=== PATIENT | male | born 1945 | race Caucasian/White ===

== ENCOUNTER 2018-01-20 14:50 | Outpatient (CLI) | payer MEDICARE, OTHER ==
[2018-01-20 19:26] LABS: CALCIUM 8.7 mg/dL (8.5-10.3)
== END 2018-01-20 14:51 ==
LOC: LAB.WCP 14:50
PROVIDERS: ATTEND Family Medicine
DX: Z12.11 Encounter for screening for malignant neoplasm of colon (principal); R31.29 Other microscopic hematuria
CPT/HCPCS: 36415; 80048; G0103; 84153

== ENCOUNTER 2018-02-04 11:18 | Outpatient (CLI) | payer MEDICARE, OTHER ==
[2018-02-04] MEDS ORDERED: IOPAMIDOL-300 100 ML VIAL ONE (13:02)
[2018-02-04] MEDS: IOPAMIDOL-300 100 ML VIAL IVP ONE (13:54)
--- NOTE | 2018-02-05 08:18 | CT Report ---
Procedure Date: 02/04/2018 Accession Number: [id number] / [id number] Procedure: CT - Abdomen/Pelvis W/WO CPT Code: FULL RESULT: EXAM: Abdomen/Pelvis W/WO DATE: 02/04/2018 1:51 PM CLINICAL HISTORY: MICROSCOPIC HEMATURIA, HX OF KIDNEY STONES COMPARISON: None. TECHNIQUE: Routine helical imaging was performed through the kidneys, ureters and bladder in the precontrast and postcontrast phases, using split bolus technique. IV Contrast: 100 mL Isovue 300 Reconstructions: Coronal and sagittal. In accordance with CT protocol optimization, one or more of the following dose reduction techniques were utilized for this exam: automated exposure control, adjustment of mA and/or KV based on patient size, or use of iterative reconstructive technique. FINDINGS: Lung Bases: Normal. Right Kidney/Ureter: Parapelvic cysts. 3 mm parenchymal calcification. No nephrolithiasis. No solid renal lesion or collecting system lesion. Left Kidney/Ureter: Parapelvic cysts. Nonobstructing calculi, measuring up to 6 mm. No solid renal lesion or collecting system lesion. Other Solid Organs: The liver, spleen, pancreas, gallbladder, and adrenal glands are unremarkable. The bile ducts are unremarkable. Peritoneal Cavity/Bowel: Normal. No free fluid, free air or adenopathy. No masses. Bowel loops are unremarkable. Pelvic Organs: No bladder stones, obstruction or masses. The visualized pelvic organs are unremarkable. Vasculature: Normal. Bones: Degenerative changes. Other: None. IMPRESSION: Nonobstructing left renal calculi. No suspicious renal mass. RADIA
== END 2018-02-04 11:19 | disposition home or self-care (01) ==
LOC: DI 11:18
PROVIDERS: ATTEND Family Medicine
DX: R01.1 Cardiac murmur, unspecified (principal); N20.0 Calculus of kidney
CPT/HCPCS: 74178; 93306; Q9967

== ENCOUNTER 2018-07-07 08:37 | Outpatient (CLI) | payer MEDICARE, OTHER ==
--- NOTE | 2018-07-07 13:49 | CARDIAC PROCEDURE NOTE ---
DATE OF SERVICE: 07/07/2018 Physician: Maria M Abernathy MD, [facility] INDICATIONS: Abnormal exercise tolerance test EKG. CARDIAC RISK FACTORS: Family history of heart disease, elevated cholesterol, male gender, advanced age. After signing informed consent, the patient performed exercise on a Kofi protocol stress test. He also had nuclear myocardial perfusion imaging. The patient exercised for 8 minutes and 45 seconds. He achieved a peak heart rate of 125 (85% predicted maximum heart rate for age), 10.16 METS. The patient had no chest pain and minimal shortness of breath. O2 saturation was 94% at peak on room air. Resting heart rate 52, peak heart rate 125 (85% PMHR). Resting blood pressure 124/88. Peak blood pressure 162/70. BASELINE EKG: Normal sinus rhythm, left atrial enlargement, late R-wave progression. PEAK EK mm ST depressions with T-wave flattening in leads II, III and aVF and, [address] depressions in lead V5 and V6. These changes resolved after 3 minutes of recovery. SUMMARY: 1. Good exercise tolerance. 2. EKG changes are consistent with ischemia at an adequate level of heart rate achieved. 3. Nuclear images reported separately. cc: Avila Nuñez MD TD: 07/07/2018 13:38 MTDD
--- NOTE | 2018-07-23 10:06 | Nuclear Medicine Report ---
Reason: ABN EXERCISE TOLERANCE TEST Procedure Date: 07/07/2018 Accession Number: [id number] / [id number] Procedure: NM - Myocardial Perfusion STR/RST CPT Code: FULL RESULT: EXAM: SINGLE-ISOTOPE EXERCISE STRESS TEST. SINGLE-ISOTOPE AND ONE-DAY REST/STRESS MYOCARDIAL PERFUSION SCANS WITH TOMOGRAPHIC IMAGING, QUANTITATIVE ANALYSIS, WALL MOTION ANALYSIS AND CALCULATION OF EJECTION FRACTION. EXAM DATE: 07/07/2018 02:57 PM. Exam made available for interpretation 07/23/2018. CLINICAL HISTORY: ABN EXERCISE TOLERANCE TEST. COMPARISON: None available. TECHNIQUE: A rest myocardial perfusion scan was done with tomography after the intravenous administration of 10.1 mCi Tc-99m sestamibi. After an appropriate delay, a treadmill exercise stress was performed according to department protocol. The patient exercised for 8 minutes and 53 seconds. The maximum heart rate was 124 bpm, which was 84% of the maximum predicted heart rate of 147 bpm. At approximately peak heart rate, 41.3 mCi of Tc-99m sestamibi was injected for stress myocardial perfusion scan. Motion correction was applied when appropriate. Gated tomographic images were obtained for wall motion analysis and computation of left ventricular ejection fraction. FINDINGS: There is decreased activity in the septum on the rest and stress images, probably representing septal thinning. There is decreased activity in the inferior wall which is more pronounced on the rest images compared to the stress images, most likely representing diaphragm attenuation artifact. No significant convincing reversible perfusion defects are evident. Computer analysis: Summed stress score 6 Summed rest score 4 Summed difference score 2 Wall motion analysis demonstrates no focal wall motion abnormality The left ventricular end-diastolic volume is 68 cc. The left ventricular end-systolic volume is 20 cc. The left ventricular ejection fraction is calculated to be 71%. IMPRESSION: 1. No convincing significant fixed or reversible perfusion defects on visual analysis. 2. Normal left ventricular ejection fraction of 71%. 3. Normal segmental and global wall motion. 4. Normal left ventricular cavity size, no change with stress. 5. Based on computer analysis, mildly abnormal study with mild ischemia. RADIA
== END 2018-07-07 08:38 | disposition home or self-care (01) ==
LOC: DI 08:37
PROVIDERS: ATTEND Family Medicine
DX: I25.9 Chronic ischemic heart disease, unspecified (principal)
CPT/HCPCS: 78452; 93017; A9500

== ENCOUNTER 2018-07-24 02:18 | Emergency (ER) | payer MEDICARE, OTHER ==
[2018-07-24 02:50] LABS: BASOPHILS # (AUTO) 0.1 10^3/uL (0.0-0.1); BASOPHILS % (AUTO) 1.2 %; EOSINOPHILS # (AUTO) 0.4 10^3/uL (0.0-0.7); EOSINOPHILS % (AUTO) 4.8 %; HGB - HEMOGLOBIN 14.9 g/dL (14.0-18.0); LYMPHOCYTES # (AUTO) 2.1 10^3/uL (1.5-3.5); LYMPHOCYTES % (AUTO) 25.1 %; MEAN CORPUSCULAR HEMOGLOBIN 29.2 pg (27.0-31.0); MEAN CORPUSCULAR HGB CONC 34.2 g/dL (32.0-36.0); MEAN CORPUSCULAR VOLUME 85.5 fL (80.0-94.0); MEAN PLATELET VOLUME 7.1 fL (7.4-11.4); MONOCYTES # (AUTO) 0.9 10^3/uL (0.0-1.0); MONOCYTES % (AUTO) 10.3 %; NEUTROPHILS % (AUTO) 58.6 %; PLT - PLATELET COUNT 221 10^3/uL (130-450); RED CELL DISTRIBUTION WIDTH 13.1 % (12.0-15.0); WHITE BLOOD COUNT 8.5 x10^3/uL (4.8-10.8)
--- NOTE | 2018-07-24 02:50 | ED Physician Documentation ---
PD HPI CHEST PAIN - Stated complaint Stated Complaint: CHEST PX - Chief complaint Chief Complaint: Cardiac - History obtained from History obtained from: Patient, Family - History of Present Illness Timing - onset: How many hours ago (9) Timing - onset during: Rest Timing - duration: Hours (9) Timing - details: Constant Pain level max: 5 Pain level now: 2 Quality: Sharp Location: Left chest Radiation: Other (non-radiating) Improved by: Nothing Worsened by: Palpation Associated symptoms: No: Shortness of air, Diaphoresis, Nausea, Vomiting, Feeling faint / dizzy, General Weakness, Palpitations, Cough - Additional information Additional information: Cardiac stress test on 07/07/18 with abnormal EKG findings, but normal NM perfusion findings. Does not see a project control officer. Took an aspirin prior to arrival Review of Systems Ten Systems: 10 systems reviewed and negative Constitutional: denies: Fever, Chills Ears: denies: Ear pain Nose: denies: Rhinorrhea / runny nose, Congestion Throat: denies: Sore throat Cardiac: denies: Palpitations Respiratory: denies: Cough GI: denies: Abdominal Pain, Nausea, Vomiting, Diarrhea Skin: denies: Rash Musculoskeletal: denies: Neck pain, Back pain Neurologic: denies: Headache PD PAST MEDICAL HISTORY - Past Medical History Cardiovascular: None Respiratory: None Endocrine/Autoimmune: None GI: None : Kidney stones HEENT: None Psych: None Musculoskeletal: None Derm: None - Past Surgical History HEENT: Tonsil/Adenoidectomy - Present Medications Home Medications: Ambulatory Orders Medication Instructions Recorded Confirmed No Known Home Medications 01/30/15 01/30/15 - Allergies Allergies/Adverse Reactions: Allergies Allergy/AdvReac Type Severity Reaction Status Date / Time No Known Drug Allergies Allergy Verified 01/30/15 15:36 PD ED PE NORMAL - Vitals Vital signs reviewed: Yes - General General: Alert and oriented X 3, No acute distress, Well developed/nourished - HEENT HEENT: PERRL, Moist mucous membranes - Neck Neck: Supple, no meningeal sign - Cardiac Cardiac: RRR, Strong equal pulses - Respiratory Respiratory: No respiratory distress, Clear bilaterally - Abdomen Abdomen: Soft, Non tender, Non distended - Derm Derm: Warm and dry - Extremities Extremities: No edema, No calf tenderness / cord - Neuro Neuro: Alert and oriented X 3 - Psych Psych: Normal mood, Normal affect - Free text exam Free text exam: Tender palpation of the left anterior chest wall. Reproduces his pain Results - Vitals Vitals: Vital Signs - 24 hr 07/24/18 07/24/18 02:20 03:31 Temperature 36.3 C L Heart Rate 57 L 62 Respiratory 15 18 Rate Blood Pressure 127/82 H 106/74 O2 Saturation 97 97 Oxygen O2 Source Room air - EKG (time done) 0224 Rate: Rate (enter#) (58) Rhythm: NSR [place]: Normal Intervals: Normal VA QRS: Normal Ischemia: Normal ST segments - Labs Labs: Laboratory Tests 07/24/18 07/24/18 07/24/18 02:43 02:43 02:43 WBC 8.5 RBC 5.10 Hgb 14.9 Hct 43.6 MCV 85.5 MCH 29.2 MCHC 34.2 RDW 13.1 Plt Count 221 MPV 7.1 L Neut # (Auto) 5.0 Lymph # (Auto) 2.1 [place] # (Auto) 0.9 Eos # (Auto) 0.4 Baso # (Auto) 0.1 Absolute Nucleated RBC 0.00 Nucleated RBC % 0.0 Sodium 136 Potassium 4.1 Chloride 103 Carbon Dioxide 26 Anion Gap 7.0 BUN 22 H Creatinine 1.1 Estimated GFR (MDRD) 66 L Glucose 98 Calcium 9.1 Total Bilirubin 0.5 AST 23 ALT 19 Alkaline Phosphatase 58 Troponin I < 0.04 Total Protein 7.2 Albumin 4.1 Globulin 3.1 Albumin/Globulin Ratio 1.3 Lipase 54 H - Rads (name of study) cxr Radiology: Prelim report reviewed, EMP read contemporaneously, See rad report (no acute disease) PD MEDICAL DECISION MAKING - ED course Complexity details: reviewed results, re-evaluated patient, considered differential (No ST elevation SC, no aortic dissection, no PE, no tension pneumothorax, no aortic aneurysm), d/w patient, d/w family ED course: 73-year-old male who presents to the emergency department with atypical chest pain. Negative troponin and EKG after greater than 9 hours of symptoms. Doubt cardiac in etiology. Reproducible by pressing on the chest wall. Discussed with the patient a second troponin, he declines this and would like to go home at this time. We will have him follow-up closely with his doctor. Patient counseled regarding signs and symptoms for which I believe and urgent re- evaluation would be necessary. Patient with good understanding of and agreement to plan and is comfortable going home at this time This document was made in part using voice recognition software. While efforts are made to proofread this document, sound alike and grammatical errors may occur. Departure - Departure Disposition: 01 Home, Self Care Clinical Impression: Chest pain Qualifiers: Chest pain type: unspecified Qualified Code(s): R07.9 - Chest pain, unspecified Condition: Good Instructions: ED Chest Pain Atypical Unkn Cause Follow-Up: Avila Nuñez MD [Provider Admit Priv/Credential] - Within 1 week Comments: The cause of your symptoms is unclear today, but do not appear to be related to your heart. Return if you worsen. Follow-up with your doctor for further care.
--- NOTE | 2018-07-24 03:00 | XRAY Report ---
Reason: Chest Pain Procedure Date: 07/24/2018 Accession Number: [id number] / [id number] Procedure: XR - Chest 1 View X-Ray CPT Code: 47667 FULL RESULT: EXAM: CHEST RADIOGRAPHY EXAM DATE: 07/24/2018 02:46 AM. CLINICAL HISTORY: Chest Pain. COMPARISON: None. TECHNIQUE: 1 view. FINDINGS: Lungs/Pleura: Small lung volumes. Mild bibasilar atelectasis. No pleural effusion seen. No pneumothorax. Mediastinum: Within exam limitations, the cardiomediastinal contour is normal. Other: Osteopenia. IMPRESSION: 1. Small lung volumes and mild bibasilar atelectasis. RADIA
[2018-07-24 03:03] LABS: ALBUMIN 4.1 g/dL (3.2-5.5); ALBUMIN/GLOBULIN RATIO 1.3 (1.0-2.2); BILIRUBIN,TOTAL 0.5 mg/dL (0.2-1.0); CALCIUM 9.1 mg/dL (8.5-10.3); CREATININE 1.1 mg/dL (0.6-1.2); TOTAL PROTEIN 7.2 g/dL (6.7-8.2)
[2018-07-24 03:32] VITALS: BP 106/74
== END 2018-07-24 03:51 | disposition home or self-care (01) ==
LOC: ED 02:18
DX: R07.89 Other chest pain (principal)
CPT/HCPCS: 36415; 71045; 80053; 83690; 84484; 85025; 93005; 99283; 99284

== ENCOUNTER 2018-11-27 13:20 | Outpatient (CLI) | payer MEDICARE, OTHER ==
--- NOTE | 2018-11-27 15:08 | XRAY Report ---
Reason: DYSPHAGIA Procedure Date: 11/27/2018 Accession Number: [id number] / [id number] Procedure: FL - Esophogram CPT Code: FULL RESULT: EXAM: BARIUM ESOPHAGRAM EXAM DATE: 11/27/2018 02:14 PM. CLINICAL HISTORY: DYSPHAGIA. COMPARISONS: None. TECHNIQUE: Routine double contrast esophagram. Fluoroscopy Time: 78 seconds. Number of Images: 30. FINDINGS: Swallowing Mechanism: Under fluoroscopy with the patient upright in the lateral position, deglutition is normal. No evidence of aspiration. Esophageal Motility: Slightly decreased primary esophageal motility. Mucosa: Normal. No ulcerations or masses. Gastroesophageal Junction: Small sliding-type hiatus hernia. Other: Findings were discussed with the patient. IMPRESSION: 1. Normal deglutition. 2. Slight decrease in primary esophageal motility. 3. Small sliding type hiatus hernia. 4. Otherwise negative examination. No evidence of obstruction or neoplasm. RADIA
== END 2018-11-27 13:21 | disposition home or self-care (01) ==
LOC: DI 13:20
PROVIDERS: ATTEND Family Medicine
DX: R13.10 Dysphagia, unspecified (principal); K44.9 Diaphragmatic hernia without obstruction or gangrene
CPT/HCPCS: 74220

== ENCOUNTER 2019-03-14 05:11 | Outpatient (CLI) | payer MEDICARE, OTHER | END 2019-03-14 05:12 | disposition critical access hospital (66) | LOC: EMS 05:11 | PROVIDERS: ATTEND Surgery | DX: M54.5 Low back pain (principal); R25.2 Cramp and spasm | CPT/HCPCS: A0425; A0429 ==

== ENCOUNTER 2019-03-14 05:33 | Emergency (ER) | payer MEDICARE, OTHER ==
[2019-03-14] MEDS ORDERED: diazePAM 5 MG TABLET PO STA (06:29)
[2019-03-14] MEDS ORDERED: LIDOCAINE 1% 2 ML VIAL SUBQ STA (06:30)
--- NOTE | 2019-03-14 06:33 | ED Physician Documentation ---
History of Present Illness - Stated complaint Stated Complaint: BACK SPASM - Chief complaint Chief Complaint: Back Pain - Additonal information Additional information: This is a 74-year-old male who denies past medical history presents with right- sided lateral back discomfort. Patient flew from [place] yesterday, he states that he has also been sleeping on an uncomfortable bed for the last week. He began having some discomfort and stiffness in his right lateral back yesterday, and this morning at 2 AM when he woke up he felt like the muscles on the right side his back were spasming. He states that if he stands up the pain gets worse and if he shifts his weight off his right leg the pain gets better. He states that with certain movements such as twisting the pain is 10 out of 10. There is no pain in the midline of his back, it is located laterally in the lateral paraspinous region. He denies fever, chills, history of malignancy, bowel or bladder incontinence, hematuria, or difficulty using the bathroom. He denies weakness or numbness Review of Systems Constitutional: denies: Fever Cardiac: denies: Chest pain / pressure GI: denies: Abdominal Pain : denies: Unable to Void Musculoskeletal: reports: Back pain Neurologic: denies: Focal weakness PD PAST MEDICAL HISTORY - Past Medical History Past Medical History: Yes Cardiovascular: None Respiratory: None Endocrine/Autoimmune: None GI: None : Kidney stones HEENT: None Psych: None Musculoskeletal: None Derm: None - Past Surgical History Past Surgical History: Yes General: Colonoscopy HEENT: Tonsil/Adenoidectomy - Present Medications Home Medications: Ambulatory Orders Medication Instructions Recorded Confirmed Acetaminophen 650 mg PO Q6HR #30 tablet 03/14/19 Cyclobenzaprine [Flexeril] 10 mg PO TID PRN #20 tablet 03/14/19 Ibuprofen [Motrin] 600 mg PO Q6H PRN #30 tab 03/14/19 - Allergies Allergies/Adverse Reactions: Allergies Allergy/AdvReac Type Severity Reaction Status Date / Time No Known Drug Allergies Allergy Verified 03/14/19 05:44 - Social History Does the pt smoke?: No Smoking Status: Never smoker Does the pt drink ETOH?: Yes Does the pt have substance abuse?: No - Immunizations Immunizations are current?: Yes - POLST Patient has POLST: No PD ED PE NORMAL - Vitals Vital signs reviewed: Yes - General General: Alert and oriented X 3 - HEENT HEENT: PERRL - Neck Neck: Supple, no meningeal sign - Cardiac Cardiac: RRR - Respiratory Respiratory: Clear bilaterally - Abdomen Abdomen: Soft, Non tender, Non distended - Back Back: Other (Back is atraumatic, there is no ecchymosis. There is no midline tenderness of the CT or L-spine. There is some palpable spasm of the right mid to lower paraspinous muscle, and reproducible tenderness to palpation in this region.Patient is able to ambulate.) - Derm Derm: Warm and dry - Extremities Extremities: No deformity - Neuro Neuro: Alert and oriented X 3, No motor deficit, No sensory deficit, Other (5 out of 5 strength with ankle flexion and extension. Able to stand and ambulate indepently with some discomfort. Sensation to light touch intact over entire lower extremities.) - Psych Psych: Normal mood, Normal affect Results - Vitals Vitals: Vital Signs - 24 hr 03/14/19 05:33 Temperature 35.9 C L Heart Rate 94 Respiratory 24 Rate Blood Pressure 122/96 H O2 Saturation 94 Oxygen O2 Source Room air Procedures - General procedure General procedure: Trigger point injection: Procedure was performed after discussion of the risks and benefits of the procedure and verbal consent was obtained from the patient. The area of maximal tenderness was identified in the right paraspinous muscles, and was cleaned with an alcohol prep pad. Using a 27-gauge needle 0.5 cc of 1% lidocaine were injected at a depth of 1 cm into the 3 areas of maximal tenderness in patient's back. Care was made to aspirate prior to injection. Patient tolerated the procedure well without immediate complication PD MEDICAL DECISION MAKING - ED course Complexity details: considered differential (Back spasm, fracture, strain, sprain, malignancy, kidney stone, pyelonephritis.) ED course: On initial examination patient is uncomfortable but nontoxic-appearing. He has pain that localizes to the right lateral inferior paraspinous muscles. He has no midline spinal tenderness or pain. He is neurologically intact. He denies urinary symptoms, and description of his pain specifically that is worse with palpation and with specific movements that is reproducible makes kidney stone highly unlikely. He was given 5 mg of Valium p.o., and I performed a trigger point injection. Afterwards patient states that his pain is greatly improved. And that he is comfortable going home to rest in his bed. Given he has no midline tenderness, is neurologically intact, and has a palpable muscle spasm in his back, I do not feel that imaging would be revealing at this time, as he appears to have paraspinous muscle spasm. I prescribed patient Tylenol, ibuprofen, and cyclobenzaprine, with instructions on the side effecs of these medications. I discussed return precautions including any pain in the middle of his back, pain that is increasing or worsening with treatment, any neurologic signs, or other concerning symptoms. Patient agreed this plan and was discharged home in the care of his family. Departure - Departure Disposition: Home, Self Care Clinical Impression: Spasm of back muscles Condition: Good Instructions: Low Back Pain Self Care Follow-Up: Your,PCP [Other] (For follow up on back pain, within one week unless symptoms resolve) Prescriptions: Acetaminophen 650 mg PO Q6HR #30 tablet Cyclobenzaprine [Flexeril] 10 mg PO TID PRN #20 tablet PRN Reason: Spasms Ibuprofen [Motrin] 600 mg PO Q6H PRN #30 tab PRN Reason: Pain Comments: You were seen today for back muscle spasm. If you develop worsening symptoms, any weakness or numbness, or abdominal pain or vomiting, return to the emergency department. Take the medications as prescribed, and be cautious when using the cyclobenzaprine as it may cause some sedation.
[2019-03-14] MEDS ORDERED: ACETAMINOPHEN 325 MG TABLET PO STA (08:46)
[2019-03-14] MEDS ORDERED: oxyCODONE 5 MG TABLET PO STA (08:46)
--- NOTE | 2019-03-14 10:14 | XRAY Report ---
Reason: Lower T spine back pain Procedure Date: 03/14/2019 Accession Number: [id number] / [id number] Procedure: XR - Lumbar Spine 2 View CPT Code: FULL RESULT: EXAM: LUMBOSACRAL SPINE RADIOGRAPHY EXAM DATE: 03/14/2019 09:36 AM. CLINICAL HISTORY: Lower T-spine back pain. COMPARISONS: None. TECHNIQUE: 2 views. FINDINGS: Alignment: There is mid lumbar spine dextroscoliosis, 20 degrees, with left shift of L1 one L2, 9 mm. No spondylolisthesis. Bones: Five [id number] lumbar vertebral bodies are present. No fractures or bone lesions. Disks/facets: There is multilevel moderate to severe degenerative disk disease in the lower thoracic spine through the lumbar spine with mid lower lumbar spine facet hypertrophy. Sacroiliac Joints: Unremarkable. Soft Tissues: The visualized bowel gas pattern is normal. IMPRESSION: 1. Mid lumbar spine dextroscoliosis, 20 degrees, with left shift of L1 on L2. 2. Multilevel moderate to severe degenerative disk disease in the lower thoracic spine through the lumbar spine with mid lower lumbar spine facet hypertrophy. RADIA
--- NOTE | 2019-03-14 10:17 | XRAY Report ---
Reason: Lower back pain Procedure Date: 03/14/2019 Accession Number: [id number] / [id number] Procedure: XR - Thoracic Spine 2 View CPT Code: FULL RESULT: EXAM: THORACIC SPINE RADIOGRAPHY EXAM DATE: 03/14/2019 09:36 AM. CLINICAL HISTORY: Lower back pain. COMPARISON: CHEST 1 VIEW 07/24/2018 2:36 AM. TECHNIQUE: 2 views. FINDINGS: Alignment: No spondylolisthesis or scoliosis. Bones: No fractures or bone lesions. Disks: Multilevel mild to severe degenerative disk disease in the mid thoracic spine through the upper lumbar spine visualized. Soft Tissues: The visualized lungs demonstrate coarse linear opacity in the lung base, likely small atelectasis or scarring. The cardiomediastinal silhouette is within normal limits. IMPRESSION: 1. Multilevel mild to severe degenerative disk disease in the mid thoracic spine through the upper lumbar spine. 2. Negative for compression fracture or spondylolisthesis in thoracic spine. RADIA
[2019-03-14 10:56] VITALS: BP 108/78
== END 2019-03-14 10:56 | disposition home or self-care (01) ==
LOC: EDUNIT# → EDBD → ED 05:33
DX: M62.830 Muscle spasm of back (principal); M54.5 Low back pain
CPT/HCPCS: 20552; 72070; 72100; 99284; A9270

== ENCOUNTER 2019-04-22 10:21 | Day surgery (SDC) | payer MEDICARE, OTHER ==
[2019-04-22] MEDS ORDERED: fentaNYL 250 MCG/5 ML VIAL IVP ONE (10:22)
[2019-04-22] MEDS ORDERED: MIDAZOLAM 2 MG/2 ML VIAL IVP ONE (10:22)
[2019-04-22] MEDS ORDERED: LACTATED RINGERS 1,000 ML IV ONE (10:51)
--- NOTE | 2019-04-22 12:00 | SURGERY HX AND PHYSICAL(T) ---
Surgical History & Physical - PMH/PSH/Social Hx Does the pt have a hx of MRSA?: No Eyes, Ears, Nose, Throat: None Cardiovascular: None Respiratory: None Skin: None Endocrine/Autoimmune: None Gastrointestinal: None Urinary: None Musculoskeletal: None Psychiatric: None General: Colonoscopy Urologic: Ureterolithotomy (stones) Eyes Ears Nose Throat (EENT): Tonsil/Adenoidectomy Smoking Status: Never smoker Does the pt drink ETOH?: Yes Frequency: Occasional Does the pt have substance abuse?: No - Home Meds and Allergies Allergies/Adverse Reactions: Allergies Allergy/AdvReac Type Severity Reaction Status Date / Time No Known Drug Allergies Allergy Verified 03/14/19 05:44 - Vital Signs Heart Rate: 73 Blood Pressure: 122/82 Temperature: 36.6 C Respiratory Rate: 18 O2 Saturation: 97 Weight (kg): 77.4 kg Height: 1.7 m - Patient Review Patient Review: Problems were reviewed with the patient during this visit. Medications were reviewed with the patient during this visit. Allergies were reviewed this patient during this visit. Pertinent Tests Reviewed: All pertitent test for this patient were reviewed. - Assessment & Plan Assessment and Plan: Shahrzad Nuñez harshad is a very pleasant 74-year-old male to our office back on January 19, 2019 for the exact same symptoms. Patient had some occasional sensation of difficulty swallowing and the sensation of food getting stuck in h is throat. This was especially true of bread. In November of this year Dr. Nuñez ordered an esophagram which was done showing slightly decreased primary esophageal motility and a small sliding hiatal hernia but with was otherwise normal. A colonoscopy that was done in November [address] Aponte showed scattered diverticulosis along with some moderate internal hemorrhoids. At that time 150 mcg of fentanyl and 5 mg of Versed were used for conscious sedation. It is of note that Lj has a positive history of colon polyps and a brother that was diagnosed with colon cancer before the age of 60. In the interim none of this is changed but the patient has developed a slight cough. Allergies: No Known Allergies Medications: SUPREP BOWEL PREP KIT 17.5-3.13-1.6 GM/180ML ORAL SOLUTION (NA SULFATE-K SULFATE-MG SULF) Take one (6oz) bottle by mouth the PM before colonoscopy & one (6oz) bottle by mouth the AM of colonoscopy as directed by surgical clinic; Route: ORAL TAMSULOSIN HCL 0.4 MG ORAL CAPSULE (TAMSULOSIN HCL) Take one capsule by mouth daily; Route: ORAL Past Medical History: Hyperlipidemia Kidney Stone Past Surgical History: Lithotripsy Tonsillectomy Colonoscopy- 2014 Family History Summary: Family History of Other Medical Problems for Mother, . N - Entered On: 01/21/2019 Family History of UT male <55 for Father - Entered On: 01/21/2019 Family History of UT male <55 for Brother - Entered On: 01/21/2019 Family History of Colon Cancer for Brother - Entered On: 01/21/2019 Legacy Family History Notes: Dad: age 79 Mom: age 87 4 brothers, 1 sister; patient is in the middle. Family History Reviewed: 01/19/2019 Family History of a father for Father - Entered On: 12/07/2014 Social History Summary: Patient has never smoked. Patient has never used smokeless tobacco. Passive Smoke: N Alcohol Use: Y Drug Use: N HIV/High Risk: N Regular Exercise: N Review of Systems CONSTITUTIONAL: No weight loss, fever, chills, weakness, or fatigue. HEENT: Eyes: No visual loss, blurred vision, double vision or yellow sclerae. Ears, Nose, Throat: No hearing loss, sneezing, congestion, runny nose, or sore throat. SKIN: No rash or itching. RESPIRATORY: No shortness of breath, cough or sputum. GASTROINTESTINAL: No anorexia, nausea, vomiting or diarrhea. No abdominal pain or blood. GENITOURINARY: No dysuria. NEUROLOGICAL: No headache, dizziness, syncope, paralysis, ataxia, numbness or tingling in the extremities. No change in bowel or bladder control. MUSCULOSKELETAL: No muscle, back pain, joint pain or stiffness. HEMATOLOGIC: No anemia, bleeding or bruising. LYMPHATICS: No enlarged nodes. No history of splenectomy. PSYCHIATRIC: No history of depression or anxiety. ENDOCRINOLOGIC: No reports of sweating, cold or heat intolerance. No polyuria or polydipsia. ALLERGIES: No history of asthma, hives, eczema or rhinitis. Physical Exam General: 74 year old male, appears stated age, well developed, well nourished HEENT: Normocephalic, atraumatic, extraocular movement intact, mucous membranes pink and moist, sclera anicteric and not injected, velez hair Neck: Supple without pain on palpation, mass or bruit Cardiac: Regular rate and rhythm without rub, gallop, or murmur Chest: Clear to auscultation bilaterally Abdomen: Soft, nontender, normoactive bowel sounds, no hepatomegaly, no splenomegaly Genitourinary: Deferred Rectal: Deferred until colonoscopy Extremities: No gross neurovascular problem, no clubbing, cyanosis or edema Gait: No gross motor deficit Psychiatric: Alert and oriented to person place and time, asks and answers questions appropriately, mood and affect appropriate Impression & Recommendations: Family history of colon cancer, personal history of colon polyps: Colonoscopy with possible biopsies and/or polypectomies. Indications, procedure, alternatives (such as barium enema, Cologuard and even no procedure at all) and risks including but not limited to perforation requiring operative repair, bleeding with its risks, and were fully explained to him. In the office, I fred diagrams explaining the colonic anatomy and the proposed procedure and handed it to him. In the office, conscious sedation was discussed at length with him as were its risks including but not limited to loss of airway, aspiration, respiratory depression, and not enough relief of pain and anxiety and he indicated that he wished to have conscious sedation for his procedure. In the office, I explained that MAC anesthesia is associated with a higher incidence of colon perforation. Review of his history does not reveal any significant systemic disease that would contraindicate use of conscious sedation or MAC anesthesia. All questions were fully answered. Verbal and written consent was obtained. The patient in preparation for his colonoscopy has been n.p.o. and his colon has been mechanically prepped. Dysphasia: Esophagogastroduodenoscopy with possible biopsies and/or polypectomies. Indications, procedure, alternatives and risks including but not limited to perforation requiring operative repair, bleeding with its risks, and were fully explained to him. In the office, I fred diagrams explaining the anatomy and the proposed procedure and handed it to him. In the office, conscious sedation was discussed at length with him as were its risks including but not limited to loss of airway, aspiration, respiratory depression, and not enough r elief of pain and anxiety and he indicated that he wished to have conscious sedation for his procedure. In the office, I explained that MAC anesthesia is associated with a higher incidence of colon perforation. Review of his history does not reveal any significant systemic disease that would contraindicate use of conscious sedation or MAC anesthesia. All questions were fully answered. Verbal and written consent was obtained. The patient in preparation for his esophagogastroduodenoscopy has been n.p.o. 30 minutes of [id number] time spent with the patient the majority of which was spent in discussion and in the generation of this document
[2019-04-22] MEDS ORDERED: LIDO GARGLE 30 ML BOTTLE ONE (12:35)
[2019-04-22] MEDS ORDERED: LIDO GARGLE 30 ML BOTTLE TOP ONE (12:42)
[2019-04-22] MEDS ORDERED: BENZOCAINE/TETRACAINE/BUTAMBEN 20 GM TOP ONE (12:42)
[2019-04-22 14:28] VITALS: BP 107/74
== END 2019-04-22 10:22 | disposition home or self-care (01) ==
LOC: SDS 10:21
PROVIDERS: ATTEND Surgery
PROC: 0DB68ZX Excision of Stomach, Via Natural or Artificial Opening Endoscopic, Diagnostic (ICD-10-PCS; 2019-04-22)
PROC: 0DJD8ZZ Inspection of Lower Intestinal Tract, Via Natural or Artificial Opening Endoscopic (ICD-10-PCS; principal; 2019-04-22 11:15)
PROC: 0DB58ZX Excision of Esophagus, Via Natural or Artificial Opening Endoscopic, Diagnostic (ICD-10-PCS; 2019-04-22 11:15)
DX: Z12.11 Encounter for screening for malignant neoplasm of colon (principal); R13.10 Dysphagia, unspecified; K22.8 Other specified diseases of esophagus; K25.9 Gastric ulcer, unspecified as acute or chronic, without hemorrhage or perforation; K20.9 Esophagitis, unspecified; K29.80 Duodenitis without bleeding; K57.30 Diverticulosis of large intestine without perforation or abscess without bleeding; K64.8 Other hemorrhoids; Z86.010 Personal history of colon polyps; Z80.0 Family history of malignant neoplasm of digestive organs
CPT/HCPCS: 43239; 87081; A9270; G0105; J3010; J7120

== ENCOUNTER 2020-01-19 07:44 | Outpatient (CLI) | payer MEDICARE, OTHER | END 2020-01-19 07:45 | disposition home or self-care (01) | LOC: DI 07:44 | PROVIDERS: ATTEND Family Medicine | DX: I51.7 Cardiomegaly (principal); I35.0 Nonrheumatic aortic (valve) stenosis | CPT/HCPCS: 93306 ==

== ENCOUNTER 2020-05-25 07:00 | Outpatient (CLI) | payer MEDICARE, OTHER ==
--- NOTE | 2020-05-25 15:09 | XRAY Report ---
PROCEDURE: Chest 2 View X-Ray INDICATIONS: DYSPNEA TECHNIQUE: 2 view(s) of the chest. COMPARISON: Chest x-ray dated 07.24.18 FINDINGS: Surgical changes and devices: None. Lungs and pleura: No pleural effusions or pneumothorax. Lungs are clear. Mediastinum: Mediastinal contours are normal. Heart size is normal. Bones and chest wall: No suspicious bony abnormalities. Soft tissues appear unremarkable. IMPRESSION: No acute process. Reviewed by: Nadeem Pritchard MD on 05/25/2020 3:07 PM PDT Approved by: Nadeem Pritchard MD on 05/25/2020 3:07 PM PDT Station ID: [id number]
== END 2020-05-25 23:59 | disposition home or self-care (01) ==
LOC: DI.WCP 07:00
PROVIDERS: ATTEND Family Medicine
DX: R06.00 Dyspnea, unspecified (principal)

== ENCOUNTER 2020-06-21 09:29 | Outpatient (CLI) | payer MEDICARE, OTHER | END 2020-06-21 09:30 | disposition home or self-care (01) | LOC: RT 09:29 | PROVIDERS: ATTEND Family Medicine | DX: R06.00 Dyspnea, unspecified (principal) | CPT/HCPCS: 94010; 94729 ==

== ENCOUNTER 2020-08-14 08:00 | Outpatient (CLI) | payer MEDICARE, OTHER ==
[2020-08-14 18:55] LABS: BASOPHILS # (AUTO) 0.1 10^3/uL (0.0-0.1); BASOPHILS % (AUTO) 0.7 %; EOSINOPHILS # (AUTO) 0.3 10^3/uL (0.0-0.7); EOSINOPHILS % (AUTO) 4.6 %; HGB - HEMOGLOBIN 15.4 g/dL (14.0-18.0); LYMPHOCYTES % (AUTO) 27.7 %; MEAN CORPUSCULAR HEMOGLOBIN 28.4 pg (27.0-31.0); MEAN CORPUSCULAR HGB CONC 31.5 g/dL (32.0-36.0); MEAN CORPUSCULAR VOLUME 90.2 fL (80.0-94.0); MEAN PLATELET VOLUME 9.4 fL (7.4-11.4); MONOCYTES # (AUTO) 0.6 10^3/uL (0.0-1.0); NEUTROPHILS # (AUTO) 4.2 10^3/uL (1.5-6.6); NEUTROPHILS % (AUTO) 58.7 %; PLT - PLATELET COUNT 299 10^3/uL (130-450); RED BLOOD COUNT 5.42 10^6/uL (4.70-6.10); RED CELL DISTRIBUTION WIDTH 12.5 % (12.0-15.0); WHITE BLOOD COUNT 7.1 x10^3/uL (4.8-10.8)
[2020-08-14 19:08] LABS: ALBUMIN 4.5 g/dL (3.2-5.5); ALBUMIN/GLOBULIN RATIO 1.3 (1.0-2.2); ALKALINE PHOSPHATASE 56 IU/L (42-121); ALT ALANINE AMINOTRANSFERASE 22 IU/L (10-60); AST ASPARTATE AMINOTRANSFERASE 23 IU/L (10-42); BILIRUBIN,TOTAL 0.6 mg/dL (0.2-1.0); BUN - BLOOD UREA NITROGEN 27 mg/dL (6-20); CALCIUM 9.7 mg/dL (8.5-10.3); CARBON DIOXIDE - CO2 27 mmol/L (21-32); CHLORIDE 101 mmol/L (101-111); CHOL/HDL RATIO 4.6 (<5.0); CHOLESTEROL 346 mg/dL; CK- CREATINE KINASE 143 IU/L (22-269); CREATININE 1.1 mg/dL (0.6-1.2); GLUCOSE 88 mg/dL (70-100); HDL CHOLESTEROL 75 mg/dL; LDL CHOLESTEROL,CALCULATED 242 mg/dL; LDL/HDL RATIO 3.2 (<3.6); SODIUM 138 mmol/L (135-145); TOTAL PROTEIN 7.9 g/dL (6.7-8.2); VLDL CHOLESTEROL 29 mg/dL
[2020-08-14 19:31] LABS: CRP - C-REACTIVE PROTEIN < 1.0 mg/dL (0-1.0)
== END 2020-08-14 23:59 | disposition home or self-care (01) ==
LOC: LAB.WCP 08:00
PROVIDERS: ATTEND Family Medicine
DX: M79.10 Myalgia, unspecified site (principal); E78.5 Hyperlipidemia, unspecified; Z12.5 Encounter for screening for malignant neoplasm of prostate; R53.83 Other fatigue
CPT/HCPCS: 36415; 80053; 80061; 82550; 84443; 85025; 85651; 86140; G0103; 83721; 84153

== ENCOUNTER 2021-02-11 11:36 | Outpatient (CLI) | payer MEDICARE, OTHER | END 2021-02-11 11:37 | disposition EMS.NT | LOC: EMS 11:36 | DX: M54.2 Cervicalgia (principal); M54.6 Pain in thoracic spine; G89.29 Other chronic pain ==

== ENCOUNTER 2023-05-31 08:02 | Emergency (ER) | payer MEDICARE, OTHER ==
--- NOTE | 2023-05-31 09:12 | ED Physician Documentation ---
PD HPI FOCAL NEURO - Stated complaint Stated Complaint: RIGHT SIDE NUMBNESS - Chief complaint Chief Complaint: Neuro - History obtained from History obtained from: Patient, Friend - History of Present Illness Timing - onset: Enter time (0600), Today Timing - duration: Hours Timing - details: Abrupt onset, Other (improving) Time of symptom onset unknown: Time of onset unknown (last normal was 4am) Severity of deficit: Severe Weakness: Arm, Hand, Left. No: Face, Leg, Foot Numbness: Other. No: Face, Arm, Hand, Leg, Foot, Right, Left Associated symptoms: No: Headache, Nausea / vomiting, Seizure, Syncope, Fall, Head injury, Chest pain, Neck pain, Back pain, Fever Contributing factors: positive: Other (aortic stenosis) Baseline status: positive: A&OX3, ambulatory, indep Similar symptoms before: Diagnosis (pinched nerve never this bad) Recently seen: Not recently seen - Additional information Additional information: Previously well 78-year-old Lj Melara awoke this morning at 4 AM to go to the bathroom things were well. When he awoke at 6 AM he noted his left arm to be flaccid. 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 He indicates that he works extra hard and that yesterday he lifted 100 pound sandbag he believes this was too much and he has had issues with overworking previously a number of times. He denies any specific pain to his neck or back he did have a strain to his chest wall yesterday while he was lifting this sandbag. He does have a history of aortic stenosis noted as mild 5 years ago. Review of Systems Constitutional: denies: Fever Eyes: denies: Decreased vision Ears: denies: Ear pain Nose: denies: Rhinorrhea / runny nose, Congestion Throat: denies: Sore throat Cardiac: denies: Chest pain / pressure, Palpitations Respiratory: denies: Dyspnea, Cough GI: denies: Abdominal Pain, Nausea, Vomiting, Constipation, Diarrhea : denies: Dysuria, Frequency Skin: denies: Rash Musculoskeletal: denies: Neck pain, Back pain, Extremity pain Neurologic: reports: Focal weakness. denies: Generalized weakness, Numbness, Difficulty speaking, Near syncope, Syncope, Seizure, Confused, Altered mental status, Headache, Head injury, LOC Psychiatric: denies: Depressed, Suicidal PD PAST MEDICAL HISTORY - Past Medical History Past Medical History: Yes Cardiovascular: None Respiratory: None Neuro: None Endocrine/Autoimmune: None GI: None : Kidney stones HEENT: None Psych: None Musculoskeletal: None Derm: None - Past Surgical History Past Surgical History: Yes General: Colonoscopy HEENT: Tonsil/Adenoidectomy - Present Medications Home Medications: Ambulatory Orders Medication Instructions Recorded Confirmed No Known Home Medications 05/31/23 05/31/23 - Allergies Allergies/Adverse Reactions: Allergies Allergy/AdvReac Type Severity Reaction Status Date / Time No Known Drug Allergies Allergy Verified 05/31/23 08:14 - Social History Does the pt smoke?: No Smoking Status: Never smoker Does the pt drink ETOH?: Yes ETOH Use: Wine Does the pt have substance abuse?: No - Immunizations Immunizations are current?: Yes - POLST Patient has POLST: No PD ED PE NORMAL - Vitals Vital signs reviewed: Yes (hypertensive mild ) - General General: Alert and oriented X 3, No acute distress, Well developed/nourished - HEENT HEENT: Atraumatic, PERRL, EOMI - Neck Neck: Supple, no meningeal sign, No bony TTP - Cardiac Cardiac: RRR, Other (2/6 holosystolic murmer at LSB) - Respiratory Respiratory: No respiratory distress, Other (rhonchi in the right base ) - Abdomen Abdomen: Soft, Non tender - Back Back: No CVA TTP, No spinal TTP - Derm Derm: Normal color, Warm and dry, No rash - Extremities Extremities: No deformity, No edema - Neuro Neuro: Alert and oriented X 3, whitesmith 2-12 intact, No sensory deficit, Normal speech, Other (There is specific weakness to the right hand with good biceps strength and normal sensation. ) Eye Opening: Spontaneous Motor: Obeys Commands Verbal: Oriented GCS Score: 15 - Psych Psych: Normal mood, Normal affect NIHSS - Time Time: 08:48 - Level of Consciousness Level of consciousness: (0) Alert, Keenly responsive LOC Questions: (0) Answers both Q's correct LOC Commands: (0) Performs both correctly - Gaze Best Gaze: (0) Normal - Visual Visual: (0) No loss - Facial Palsy Facial Palsy: (0) Normal, symmetrical movement - Motor Arms (both separate) Motor Arm (right): (1) Drift Motor Arm (left): (0) No drift - Motor Legs (both separate) Motor Leg (right): (0) No drift Motor Leg (left): (0) No drift - Limb Ataxia Limb Ataxia: (0) Absent - Sensory Sensory: (0) Normal - Best Language Best Language: (0) No aphasia - Dysarthria Dysarthria: (0) Normal - Extinction and Inattention (formally neg Extinction and inattention: (0) No abnormality - Total Score/Results Total Score/Result: 1 Results - Vitals Vitals: Vital Signs - 24 hr 05/31/23 05/31/23 05/31/23 08:14 08:34 09:12 Temperature 36.7 C Heart Rate 66 61 57 L Respiratory 18 11 L 19 Rate Blood Pressure 150/91 H 152/88 H 152/94 H O2 Saturation 97 99 94 05/31/23 05/31/23 05/31/23 09:34 10:39 11:17 Temperature Heart Rate 54 L 55 L 62 Respiratory 17 16 16 Rate Blood Pressure 141/90 H O2 Saturation 96 97 94 05/31/23 05/31/23 12:07 15:30 Temperature Heart Rate 64 81 Respiratory 20 20 Rate Blood Pressure 143/49 H 111/74 O2 Saturation 96 95 Oxygen O2 Source Room air - EKG (time done) 0830 EKG releavant findings:: EKG personally interpreted by author of this note. Relevant findings are: Rate: Rate (enter#) (60) Rhythm: NSR Intervals: LBBB (incomplete) Compare to prior EKG: Changed from prior EKG (SPT 07-24-2018 the development of incomplete LBBB is new.) Computer interpretation: Agree with computer - Labs Labs: Laboratory Tests 05/31/23 05/31/23 08:28 08:28 WBC 6.4 RBC 5.45 Hgb 15.5 Hct 48.1 MCV 88.3 MCH 28.4 MCHC 32.2 RDW 12.9 Plt Count 251 MPV 9.4 Neut # (Auto) 3.2 Lymph # (Auto) 2.3 [place] # (Auto) 0.5 Eos # (Auto) 0.3 Baso # (Auto) 0.1 Absolute Nucleated RBC 0.00 Nucleated RBC % 0.0 Sodium 139 Potassium 4.5 Chloride 106 Carbon Dioxide 28 Anion Gap 5.0 L BUN 22 H Creatinine 1.3 Estimated GFR (MDRD) 53 L Glucose 109 H Calcium 9.9 Total Bilirubin 0.5 AST 21 ALT 18 Alkaline Phosphatase 53 Total Protein 7.5 Albumin 4.5 Globulin 3.0 Albumin/Globulin Ratio 1.5 Lipase 70 - Rads (name of study) chest Relevant Findings:: Prelim report reviewed (Impression: No acute cardiopulmonary process.), EMP independent interpretation of test CT angio head and neck Relevant Findings:: Prelim report reviewed (Impression: Preocclusive 90% right proximal ICA atherosclerotic stenosis. No intracranial large vessel occlusion, aneurysm or vascular malformation.), EMP independent interpretation of test Procedures - IVC sono (time) 0900 Bedside IVC sono: IVC measures (cm) (1.11), IVC collapsed c insp (cm) (complete), Dehydration (est 1+ liter deficit) PD Medical Decision Making - ED course Complexity details: reviewed old records, reviewed results, re-evaluated patient, considered differential, d/w patient, d/w family Reviewed Lab Results: We reviewed a complete blood count showing a normal white blood cell count normal hemoglobin hematocrit and platelets chemistries remarkable only for a BUN elevated at 22 otherwise normal electrolytes normal kidney and liver function. My interpretation of this in the context of this patient's presentation is that the elevated BUN likely represents a level of dehydration discovered on interrogation of the inferior vena cava with POCUS. ED course: 78-year-old male with history of aortic stenosis presents to the emergency department today with a flaccid left arm. My initial interpretation of this presentation was that he likely had slept wrong on his side and that this was a peripheral neuropathy. However I discovered on examination the patient had aortic stenosis and on work-up he also had significant preocclusive stenosis to the right internal carotid artery of 90%. I also found the patient to be volume depleted on interrogation of the IVC with POCUS. He is administered IV fluid after angiograms of the head and neck.His symptoms continually have slowly improved with increased strength to the left arm. At the time of this dictation MRI is pending. I contacted the vascular surgeon Dr. Baez at [facility] in [place] and she indicated that the patient would likely need a procedure during his stay if he is transferred to the medicine service. I have spoken to Dr. Tootie Hoyt she is willing to accept the patient in transfer to a [facility] bed. At the time of discharge the patient has minimal symptomatology. He has been hydrated and MRI is pending. Departure - Departure Disposition: 02 Transfer Acute Care Hosp Clinical Impression: Neurological symptoms, Carotid stenosis, symptomatic, with infarction Condition: Stable
[2023-05-31] MEDS ORDERED: DEXAMETHASONE 10 MG/ML VIAL IVP STA (09:13)
[2023-05-31 09:14] LABS: BASOPHILS # (AUTO) 0.1 10^3/uL (0.0-0.1); BASOPHILS % (AUTO) 0.9 %; EOSINOPHILS # (AUTO) 0.3 10^3/uL (0.0-0.7); EOSINOPHILS % (AUTO) 4.5 %; HCT - HEMATOCRIT 48.1 % (42.0-52.0); HGB - HEMOGLOBIN 15.5 g/dL (14.0-18.0); LYMPHOCYTES # (AUTO) 2.3 10^3/uL (1.5-3.5); LYMPHOCYTES % (AUTO) 35.3 %; MEAN CORPUSCULAR HEMOGLOBIN 28.4 pg (27.0-31.0); MEAN CORPUSCULAR HGB CONC 32.2 g/dL (32.0-36.0); MEAN CORPUSCULAR VOLUME 88.3 fL (80.0-94.0); MEAN PLATELET VOLUME 9.4 fL (7.4-11.4); MONOCYTES # (AUTO) 0.5 10^3/uL (0.0-1.0); MONOCYTES % (AUTO) 8.5 %; NEUTROPHILS # (AUTO) 3.2 10^3/uL (1.5-6.6); NEUTROPHILS % (AUTO) 50.5 %; PLT - PLATELET COUNT 251 10^3/uL (130-450); RED BLOOD COUNT 5.45 10^6/uL (4.70-6.10); RED CELL DISTRIBUTION WIDTH 12.9 % (12.0-15.0); WHITE BLOOD COUNT 6.4 x10^3/uL (4.8-10.8)
[2023-05-31 09:24] LABS: ALBUMIN 4.5 g/dL (3.2-5.5); ALBUMIN/GLOBULIN RATIO 1.5 (1.0-2.2); BILIRUBIN,TOTAL 0.5 mg/dL (0.2-1.0); CALCIUM 9.9 mg/dL (8.5-10.3); CREATININE 1.3 mg/dL (0.6-1.3); POTASSIUM 4.5 mmol/L (3.5-4.5); TOTAL PROTEIN 7.5 g/dL (6.4-8.9)
--- NOTE | 2023-05-31 09:44 | XRAY Report ---
PROCEDURE: Chest 1 View X-Ray INDICATIONS: R base rhonchi TECHNIQUE: One view of the chest was acquired. COMPARISON: Chest x-ray 05/25/2023. FINDINGS: Surgical changes and devices: None. Lungs and pleura: No pleural effusions or pneumothorax. Lungs are clear. Mediastinum: Mediastinal contours appear normal. Heart size is mildly prominent. Bones and chest wall: No suspicious bony lesions. Overlying soft tissues appear unremarkable. IMPRESSION: No acute cardiopulmonary process. Reviewed by: Maura Blue MD on 05/31/2023 9:42 AM PDT Approved by: Maura Blue MD on 05/31/2023 9:42 AM PDT Station ID: [id number]
[2023-05-31] MEDS ORDERED: SODIUM CHLORIDE 0.9% 1,000 ML IV STA (10:42)
--- NOTE | 2023-05-31 11:08 | CT Report ---
PROCEDURE: CT Angio Head/Neck INDICATIONS: L arm flaccid improving TECHNIQUE: Helical axial CT of the head and neck was obtained during the arterial phase of a intrave nous contrast injection utilizing an angiographic protocol. Multiplanar traditional and MIP reformat s were also obtained. COMPLIANCE STATEMENTS: Any estimate of proximal ICA stenosis was calculated using NASCET guidelines. Dose reduction techniques included either automated exposure control or adjustment of exposure tamiko eters. COMPARISON: None. FINDINGS: Cerebral CT Angiogram: Internal carotid arteries: No acute findings. Intracranial ICA are patent with no significant steno sis. No occlusion. No aneurysm. Anterior cerebral arteries: Unremarkable. No significant stenosis. No occlusion. No aneurysm. Middle cerebral arteries: Unremarkable. No significant stenosis. No occlusion. No aneurysm. Posterior cerebral arteries: Unremarkable. No significant stenosis. No occlusion. No aneurysm. Basilar artery: Unremarkable. No significant stenosis. No occlusion. No aneurysm. Vertebral arteries: Unremarkable as visualized. Left vertebral artery dominance. Right vertebral art shira terminates in the posterior inferior cerebellar artery Dural venous sinuses: Unremarkable given phase of enhancement. Other: Arterial phase appearance of the brain parenchyma is unremarkable. Neck CT Angiogram: Internal carotid arteries: Calcified and noncalcified atherosclerotic plaque noted in both proximal i nternal carotid arteries results in severe in greater than 90% stenosis on the right and no significa nt stenosis on the left. Common carotid arteries: Unremarkable. No significant stenosis. No dissection or occlusion. External carotid arteries: Unremarkable. No occlusion. Vertebral arteries: Unremarkable. No significant stenosis. No dissection or occlusion. Left verteb ral artery dominance Aortic Arch and Mediastinum: Partially visualized aortic arch unremarkable without evidence of aneury sm. Origins of the great vessels unremarkable. Other: Arterial phase soft tissues of the neck are unremarkable. IMPRESSION: Preocclusive 90% right proximal ICA atherosclerotic stenosis. No intracranial large vessel occlusion, aneurysm or vascular malformation Reviewed by: Lino Cartwright MD on 05/31/2023 10:07 AM MYKE Approved by: Lino Cartwright MD on 05/31/2023 10:07 AM MYKE Station ID: [id number]
[2023-05-31] MEDS ORDERED: iohexoL-300 100 ML VIAL IVP ONE (12:54)
[2023-05-31] MEDS ORDERED: LORazepam 2 MG/ML VIAL IVP STA (15:21)
[2023-05-31 15:34] VITALS: BP 111/74; O2SAT 95
--- NOTE | 2023-05-31 16:54 | MRI Report ---
PROCEDURE: MRI brain without contrast INDICATIONS: L arm weakness TECHNIQUE: Multiplanar multisequential MR images of the brain were obtained without contrast COMPARISON: None FINDINGS: CSF Spaces: Basal cisterns are patent. No extra-axial fluid collections. Ventricles are normal in size and shape. Brain: No intracranial masses or hemorrhage. Tineo/white matter interface is normal. Brainstem appe ars normal. . Normal intravascular flow voids are present. There is stippled restricted diffusion n oted in the right frontal precentral gyrus predominantly in the white matter. No mass effect or midli ne shift. No blood products. Skull and face: Calvarium has normal marrow signal. Orbits appear normal. Sinuses: Sinuses and mastoids are clear. IMPRESSION: Small focal acute infarct is noted in the right precentral gyrus white matter. No mass effect or sign ificant cerebral edema Reviewed by: Lino Cartwright MD on 05/31/2023 3:52 PM AKDT Approved by: Lino Cartwright MD on 05/31/2023 3:52 PM AKDT Station ID: [id number]
== END 2023-05-31 17:05 | disposition short-term general hospital (02) ==
LOC: ED 08:02
DX: I63.231 Cerebral infarction due to unspecified occlusion or stenosis of right carotid arteries (principal)
CPT/HCPCS: 36415; 70496; 70498; 70551; 71045; 80053; 83690; 85025; 93005; 96361; 96374; 96375; 99285; J2060; Q9967

== ENCOUNTER 2023-05-31 17:00 | Outpatient (CLI) | payer MEDICARE, OTHER | END 2023-05-31 17:01 | disposition short-term general hospital (02) | LOC: EMS 17:00 | PROVIDERS: ATTEND Emergency Medicine | DX: I65.29 Occlusion and stenosis of unspecified carotid artery (principal); I63.9 Cerebral infarction, unspecified; G83.24 Monoplegia of upper limb affecting left nondominant side | CPT/HCPCS: A0425; A0428 ==